=== PATIENT | female | born 1980 | race American Indian/Alaskan Native ===

== ENCOUNTER 2022-05-03 11:16 | Emergency (ER) | payer BC ==
--- NOTE | 2022-05-03 12:11 | Emergency Department Report ---
ED Female HPI - General Chief complaint: Vaginal Bleeding Stated complaint: VAG BLEEDING (PREG) Time Seen by Provider: 05/03/22 11:36 Source: patient Mode of arrival: Ambulatory Limitations: No Limitations - History of Present Illness Initial comments: Last menstrual period 426 Patient is a 41-year-old that comes to the emergency room after having a positive test a couple weeks ago and then developing vaginal bleeding overnight. She denies any fever or chills. Has mild abdominal cramping. Denies any vaginal discharge. She is ambulatory, nontoxic [id number] on arrival to the ER. Patient reports that the bleeding is light. She denies passing tissue. She has not had [facility] [employer] care as of yet. MD Complaint: vaginal bleeding -: Sudden, hour(s) Severity: mild Severity scale (0 -10): 1 Quality: cramping Consistency: intermittent Improves with: none Worsens with: none Are you Now?: Yes Associated Symptoms: denies other symptoms, vaginal bleeding - Related Data Sexually active: Yes Allergies Allergy/AdvReac Type Severity Reaction Status Date / Time No Known Allergies Allergy Verified 05/03/22 11:35 ED Review of Systems ROS: Stated complaint: VAG BLEEDING (PREG) Other details as noted in HPI Comment: All other systems reviewed and negative ED Past Medical Hx - Past Medical History Previous Medical History?: No - Surgical History Past Surgical History?: No - Family History Family history: no significant - Social History Smoking Status: Never Smoker Substance Use Type: None ED Physical Exam - General Limitations: No Limitations General appearance: alert, in no apparent distress - Head Head exam: Present: atraumatic, normocephalic - Eye Eye exam: Present: normal appearance - ENT ENT exam: Present: mucous membranes moist - Neck Neck exam: Present: normal inspection - Respiratory Respiratory exam: Present: normal lung sounds bilaterally. Absent: respiratory distress - Cardiovascular Cardiovascular Exam: Present: regular rate, normal rhythm. Absent: systolic murmur, diastolic murmur, rubs, gallop - GI/Abdominal GI/Abdominal exam: Present: soft, normal bowel sounds - Extremities Exam Extremities exam: Present: normal inspection - Back Exam Back exam: Present: normal inspection - Neurological Exam Neurological exam: Present: alert, oriented X3 - Psychiatric Psychiatric exam: Present: normal affect, normal mood - Skin Skin exam: Present: warm, dry, intact, normal color. Absent: rash ED Course Vital Signs 05/03/22 05/03/22 11:32 15:55 Temperature 98.2 F 98 F Pulse Rate 62 71 Respiratory 16 16 Rate Blood Pressure 111/62 Blood Pressure 121/70 [Right] O2 Sat by Pulse 100 100 Oximetry ED Medical Decision Making - Lab Data Result diagrams: 05/03/22 12:18 05/03/22 12:18 - Radiology Data Radiology results: report reviewed, image reviewed See report - Medical Decision Making Labs 05/03/22 05/03/22 05/03/22 11:58 12:18 12:18 WBC 5.6 RBC 4.27 Hgb 8.7 L Hct 28.3 L MCV 66 L MCH 20 L MCHC 31 RDW 19.3 H Plt Count 330 Lymph % (Auto) 35.2 H Bond % (Auto) 6.8 Eos % (Auto) 12.2 H Baso % (Auto) 1.0 Lymph # (Auto) 2.0 Bond # (Auto) 0.4 Eos # (Auto) 0.7 H Baso # (Auto) 0.1 Seg Neutrophils % 44.8 Seg Neutrophils # 2.5 Sodium 139 Potassium 4.1 Chloride 107.2 H Carbon Dioxide 20 L Anion Gap 16 BUN 6 L Creatinine 0.6 Estimated GFR > 60 BUN/Creatinine Ratio 10 Glucose 100 Calcium 9.3 HCG, Quant Urine Color Yellow Urine Turbidity Clear Urine pH 7.0 Ur Specific [place] 1.014 Urine Protein <15 mg/dl Urine Glucose (UA) Neg Urine Ketones Neg Urine Blood Lg Urine Nitrite Neg Urine Bilirubin Neg Urine Urobilinogen < 2.0 Ur Leukocyte Esterase Sm Urine WBC (Auto) 1.0 Urine RBC (Auto) 1.0 U Epithel Cells (Auto) 4.0 Urine Mucus Few Urine HCG, Qual Positive A Blood Type Ord Rhogam Gestat Weeks 05/03/22 05/03/22 12:18 12:18 WBC RBC Hgb Hct MCV MCH MCHC RDW Plt Count Lymph % (Auto) Bond % (Auto) Eos % (Auto) Baso % (Auto) Lymph # (Auto) Bond # (Auto) Eos # (Auto) Baso # (Auto) Seg Neutrophils % Seg Neutrophils # Sodium Potassium Chloride Carbon Dioxide Anion Gap BUN Creatinine Estimated GFR BUN/Creatinine Ratio Glucose Calcium HCG, Quant 67194 H Urine Color Urine Turbidity Urine pH Ur Specific [place] Urine Protein Urine Glucose (UA) Urine Ketones Urine Blood Urine Nitrite Urine Bilirubin Urine Urobilinogen Ur Leukocyte Esterase Urine WBC (Auto) Urine RBC (Auto) U Epithel Cells (Auto) Urine Mucus Urine HCG, Qual Blood Type A POSITIVE Ord Rhogam Gestat Weeks Rh pos Vital Signs 05/03/22 11:32 Temperature 98.2 F Pulse Rate 62 Respiratory 16 Rate Blood Pressure 111/62 O2 Sat by Pulse 100 Oximetry Labs noted. UA noted Rh+ Ultrasound noted I discussed the findings with patient and significant other. They understand that they need to have follow-up imaging and beta quant in 48 hours. I have explained to them that I am concerned that the patient is miscarrying. Patient has had prior miscarriages. On discharge patient is ambulatory, nontoxic [id number]. She verbalizes understanding of plan of care. - Differential Diagnosis Rule out ectopic versus miscarriage Critical care attestation.: If time is entered above; I have spent that time in minutes in the direct care of this critically ill patient, excluding procedure time. ED Disposition Clinical Impression: Threatened , Vaginal bleeding during Disposition: 01 HOME / SELF CARE / HOMELESS Is pt being admited?: No Does the pt Need Aspirin: No Condition: Stable Instructions: Threatened Miscarriage Additional Instructions: pelvic rest tylenol for pain stay well hydrated follow up with obgyn in 48 hours you will need repeat labs/ultrasound referral below Referrals: NANCY AMOR MD [Staff Physician] - 3-5 Days Time of Disposition: 15:01
[2022-05-03 12:35] LABS: Bilirubin,Urine NEG (Negative); Blood,Urine LG (Negative); Color,Urine Yellow (Yellow); HCG Qualitative,Urine Positive (Negative); Protein,Urine <15 mg/dL mg/dL (Negative); Urobilinogen,Urine < 2.0 mg/dL (<2.0)
[2022-05-03 12:38] LABS: Mucus,Urine FEW /HPF
[2022-05-03 13:13] LABS: Basophils # (Auto) 0.1 K/mm3 (0.0-0.1); Eosinophils # (Auto) 0.7 K/mm3 (0.0-0.4); Eosinophils % (Auto) 12.2 % (0.0-4.3); Hematocrit 28.3 % (30.3-42.9); Hemoglobin 8.7 gm/dl (10.1-14.3); Lymphocytes % (Auto) 35.2 % (13.4-35.0); Mean Corpuscular HGB Conc 31 % (30-34); Monocytes # (Auto) 0.4 K/mm3 (0.0-0.8); Monocytes % (Auto) 6.8 % (0.0-7.3); Platelet Count 330 K/mm3 (140-440); Red Blood Count 4.27 M/mm3 (3.65-5.03); Red Cell Distribution Width 19.3 % (13.2-15.2)
[2022-05-03 13:19] LABS: Blood Urea Nitrogen 6 mg/dL (7-17); Calcium 9.3 mg/dL (8.4-10.2); Hemolysis Index 2
[2022-05-03 13:24] LABS: BUN/Creatinine Ratio 10
[2022-05-03 13:44] LABS: Mean Corpuscular Volume 66 fl (79-97)
--- NOTE | 2022-05-03 14:16 | Ultrasound Report ---
ULTRASOUND OBSTETRIC REASON FOR EXAM: vag bleed in preg TECHNIQUE: Transabdominal ultrasound was performed to evaluate a first trimester . COMPARISON: None available. FINDINGS: FINDINGS: Small intrauterine collection with decidual reaction, likely reflecting intrauterine gestational sac. This measures 19 mm, corresponding to a gestational age of 6 weeks and 6 days. No discrete no sac or pole is identified, though only transabdominal images were obtained. Small area of perigestati onal hemorrhage measures up to 1.3 cm. This does not involve greater than 50% of the sac circumferenc e. MATERNAL FINDINGS: The uterus measures 8.3 cm. The right ovary demonstrates a normal sonographic appearance. The left ovary demonstrates a normal sonographic appearance. Cul-de-sac: There is no free fluid. IMPRESSION: Small intrauterine gestational sac without yolk sac or pole identified on transabdominal imagin g. Sonographic findings are suspicious for but not diagnostic of failure. However, these fi ndings are incompletely assessed by transabdominal imaging and follow-up with transvaginal imaging is recommended. Small perigestational hemorrhage. Continued attention on follow-up is recommended. Signer Name: Jose Calvin MD Signed: 05/03/2022 2:11 PM Workstation Name: [id number]
[2022-05-03 16:02] VITALS: BP 121/70
== END 2022-05-03 15:55 | disposition home or self-care (01) ==
LOC: EDBD → ED 11:16
DX: O20.0 Threatened abortion (principal); Z3A.00 Weeks of gestation of pregnancy not specified
CPT/HCPCS: 36415; 76801; 80048; 81001; 81025; 84702; 85025; 86900; 86901; 99284